=== PATIENT | female | born 1960 | race Caucasian/White ===

== ENCOUNTER → 2017-05-25 | Outpatient (CLI) | payer OTHER ==
--- NOTE | 2017-05-25 10:38 | MR ---
EXAMINATION TYPE: MR knee LT wo con DATE OF EXAM: 05/25/2017 COMPARISON: NONE HISTORY: Lt knee pain TECHNIQUE: Multiplanar, multisequence imaging of the knee is performed without IV contrast. FINDINGS: MEDIAL MENISCUS: Anterior and posterior horns are intact without tear. LATERAL MENISCUS: Anterior and posterior horns are intact without tear. CRUCIATE LIGAMENTS: The anterior and posterior cruciate ligaments are intact and unremarkable. COLLATERAL LIGAMENTS: The medial collateral ligament and lateral collateral ligament complex are inta ct and unremarkable. EXTENSOR MECHANISM: Visualized quadriceps and patellar tendons are intact. EFFUSION: Small suprapatellar joint effusion. POPLITEAL CYST: Small semimembranosus gastrocnemius cyst TRICOMPARTMENT SPACES: Maintained CARTILAGE: Within normal limits BONE MARROW SIGNAL: There is diffuse bone marrow edema along the anterior and proximal tibia, microtr abecular fractures with mild depression thought present at the lateral aspect of the tibial plateau. Bone marrow edema also present in the posterior aspect of the tibia proximally at the medial aspect a s well as the anterior aspect of the medial femoral condyle. OTHER: The medial patellar retinaculum shows some local increased signal possibly due to local edema or strain, possible partial tear. IMPRESSION: Posttraumatic changes proximal tibia as described, additional findings above
== END | disposition home or self-care (01) ==
LOC: RADMRIMAIN 09:07
PROVIDERS: ATTEND Orthopaedic Surgery
DX: M25.562 Pain in left knee (principal)

== ENCOUNTER → 2024-03-06 | Outpatient (CLI) | payer OTHER ==
[2024-03-06 19:17] LABS: Basophils # (A) 0.04 X 10*3/uL (0.00-0.10); Basophils % (A) 0.5 %; Eosinophils # (A) 0.17 X 10*3/uL (0.04-0.35); Eosinophils % (A) 2.2 %; HGB 12.8 g/dL (12.0-15.0); Lymphocytes # (A) 2.28 X 10*3/uL (0.90-5.00); Lymphocytes % (A) 29.8 %; MCH 31.2 pg (27.0-32.0); MCV 97.6 FL (80.0-97.0); Mean Platelet Volume 11.2 FL (9.5-12.2); Monocytes # (A) 0.64 X 10*3/uL (0.20-1.00); Monocytes % (A) 8.4 %; NRBC Per 100 WBC 0 X 10*3/uL (0.00-0.01); Neutrophils # (A) 4.51 X 10*3/uL (1.80-7.70); Neutrophils % (A) 58.8 %; Platelet Count 317 X 10*3/uL (140-440); RDW 13.9 % (11.5-14.5); WBC 7.66 X 10*3/uL (4.50-10.00)
[2024-03-06 19:46] LABS: % Iron Saturation 23.21 (12.00-45.00); Chol/HDL Ratio 3.46 Ratio; Iron 94 UG/DL (50-170); Total Iron Binding Capacity 405 UG/DL (228-460); VLDL Calculation 16.58 mg/dL (5.00-40.00)
[2024-03-06 19:47] LABS: ALT 25 U/L (8-44); AST 23 U/L (13-35); Albumin 4.9 g/dL (3.8-4.9); Albumin/Globulin Ratio 2.13 Ratio (1.60-3.17); Alkaline Phosphatase 75 U/L (41-126); BUN/Creat Ratio 24.43 Ratio (12.00-20.00); Blood Urea Nitrogen 17.1 mg/dL (9.0-27.0); Carbon Dioxide 26.3 mmol/L (21.6-31.8); Chloride 103 mmol/L (96-109); Globulin 2.3 g/dL (1.6-3.3); Glucose 91 mg/dL (70-110); Potassium 4.6 mmol/L (3.5-5.5); Sodium 141 mmol/L (135-145); Total Bilirubin 0.4 mg/dL (0.3-1.2); Total Protein 7.2 g/dL (6.2-8.2)
== END | disposition home or self-care (01) ==
LOC: LABWHC1 12:25
PROVIDERS: ATTEND Family Medicine
DX: Z00.00 Encounter for general adult medical examination without abnormal findings (principal); D50.9 Iron deficiency anemia, unspecified; E55.9 Vitamin D deficiency, unspecified
CPT/HCPCS: 36415; 80053; 80061; 82306; 82728; 83036; 83540; 83550; 84443; 85025